=== PATIENT | female | born 2000 | race Caucasian/White ===

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

== ENCOUNTER 2019-02-08 22:21 | Emergency (ER) | payer SELFPAY ==
[~2019-02-08] VITALS: Ht 154.9 cm; Wt 59.0 kg
--- NOTE | 2019-02-08 23:00 | NUR ---
SHAKIRA FROM STREET. +ETOH BS 119. PT ASLEEP, INTOXICATED, WILL OPEN EYES W/ VERBAL STIMULI & WILL GO BACK TO SLEEP. RR EVEN & UNLABORED. DR. GOLD AT BS FOR EVAL & WILL CONT TO MONITOR.
--- NOTE | 2019-02-08 23:33 | NUR ---
URINE COLLECTED & LABS DRAWN & SENT TO LAB.
--- NOTE | 2019-02-09 02:22 | NUR ---
PT RESTING COMFORTABLY IN BED. VITAL SIGNS STABLE. NO ACUTE DISTRESS NOTED AT THIS TIME. WILL CONTINUE TO MONITOR
--- NOTE | 2019-02-09 04:14 | NUR ---
PT RESTING COMFORTABLY IN BED. VITAL SIGNS STABLE. NO ACUTE DISTRESS NOTED AT THIS TIME. WILL CONTINUE TO MONITOR
--- NOTE | 2019-02-09 05:43 | NUR ---
PT RESTING COMFORTABLY IN BED. VITAL SIGNS STABLE. NO ACUTE DISTRESS NOTED AT THIS TIME. WILL CONTINUE TO MONITOR
[2019-02-09 06:45] VITALS: BP 118/89
--- NOTE | 2019-02-09 06:45 | NUR ---
PT AAOX4. Patient discharged to home in stable condition. Written and verbal after care instructions given. Patient verbalizes understanding of instruction. Pt ambulatory with a steady gait
== END 2019-02-09 06:46 | disposition home or self-care (01) ==
LOC: ER 22:23
DX: F15.10 Other stimulant abuse, uncomplicated (principal); F19.10 Other psychoactive substance abuse, uncomplicated; Z59.0 Homelessness
CPT/HCPCS: 36415; 80305; 84703-TC; G0480

== ENCOUNTER 2021-07-27 04:10 | Emergency (ER) | payer MEDICAID ==
[~2021-07-27] VITALS: Ht 147.3 cm; Wt 59.0 kg
--- NOTE | 2021-07-27 04:40 | NUR ---
BIBRA 860 WITH [employer] C/O +SI - HI WITH PLAN TO CUT WRIST C/O RIGHT/WRIST PAIN. CHANGED INTO A GOWN A BELONGINGS COLLECTED. SITTER AT BEDSIDE FOR MONITORING. BREATHING EVEN AND UNLABORED AND ALL V/S STABLE.
--- NOTE | 2021-07-27 04:45 | NUR ---
URINE COLLECTED SENT TO LAB
--- NOTE | 2021-07-27 04:46 | NUR ---
BLOOD COLLECTED AND SENT TO LAB
[2021-07-27 05:45] LABS: BASOPHILS # (AUTO) 0.1 K/uL (0.0-0.2); BASOPHILS % (AUTO) 1.2 % (0.0-2.0); EOSINOPHILS % (AUTO) 2.6 % (0.0-6.0); HEMATOCRIT 40 % (33-45); HEMOGLOBIN 13.3 g/dL (11.5-14.8); LYMPHOCYTES # (AUTO) 2.4 K/uL (0.8-4.8); LYMPHOCYTES % (AUTO) 33.3 % (20.0-44.0); MEAN CORPUSCULAR HGB CONC 33 g/dl (31.0-36.0); MEAN CORPUSCULAR VOLUME 90 fL (82-100); MONOCYTES # (AUTO) 0.6 K/uL (0.1-1.30); MONOCYTES % (AUTO) 8.7 % (2.0-12.0); NEUTROPHILS # (AUTO) 3.9 K/uL (1.8-8.9); NEUTROPHILS % (AUTO) 54.2 % (43.0-81.0); PLATELET COUNT (AUTO) 439 K/uL (150-450); RED BLOOD CELL COUNT(AUTO) 4.45 MIL/uL (4.0-5.2); WHITE BLOOD COUNT (AUTO) 7.1 K/uL (4.3-11.0)
[2021-07-27 06:02] LABS: CALCIUM, SERUM 8.6 mg/dL (8.5-10.1); CARBON DIOXIDE 25 mmol/L (21-32); CHLORIDE 104 mmol/L (98-107); CREATININE 0.6 mg/dL (0.6-1.3); GLUCOSE 86 mg/dL (74-106); POTASSIUM 3.5 mmol/L (3.5-5.1); SODIUM SERUM 140 mmol/L (136-145); UREA NITROGEN, BLOOD 9 mg/dL (7-18)
[2021-07-27 06:07] LABS: ALANINE AMINOTRANSFERASE 80 U/L (12-78); ALBUMIN 3.7 g/dL (3.4-5.0); ALCOHOL, BLOOD 72 mg/dL (0-0); ALKALINE PHOSPHATASE 66 U/L (46-116); ASPARTATE AMINOTRANSFERASE 67 U/L (15-37); BILIRUBIN,DIRECT 0.1 mg/dL (0.0-0.2); BILIRUBIN,TOTAL 0.2 mg/dL (0.2-1.0); TOTAL PROTEIN, SERUM 7.9 g/dL (6.4-8.2)
[2021-07-27 06:12] LABS: ACETAMINOPHEN < 2 ug/ml (10-30)
[2021-07-27 07:13] LABS: BILIRUBIN,URINE NEGATIVE (NEGATIVE); COLOR,URINE YELLOW (YELLOW); LEUKOCYTE ESTERASE ,URINE NEGATIVE (NEGATIVE); NITRITE, URINE NEGATIVE (NEGATIVE); PROTEIN,URINE NEGATIVE (NEGATIVE); UGLUCOSE NEGATIVE (NEGATIVE); UROBILINOGEN,URINE 0.2 EU/dL (0.2)
[2021-07-27 07:27] LABS: BACTERIA,URINE Many /HPF (None Seen); SQUAMOUS EPITHELIAL CELL,UR Many /HPF (None Seen); WBC,URINE 0-2 /HPF (0-3)
--- NOTE | 2021-07-27 08:01 | NUR ---
THE PATIENT IS RECEIVED IN ER BED #14. ALERT AND ORIENTED X4. DENIES PAIN. IN ROOM AIR AND DENIES SOB. RESPIRATION REGULAR AND UNLABORED. SITTER AT THE BEDSIDE. WILL CONTINUE TO MONITOR THE PATIENT.
[2021-07-27] MEDS ORDERED: ACETAMINOPHEN ES 500 MG TABLET ONE (09:18)
[2021-07-27] MEDS ORDERED: ACETAMINOPHEN ES 500 MG TABLET PO ONE (09:30)
[2021-07-27 17:33] VITALS: BP 131/85
--- NOTE | 2021-07-27 17:52 | NUR ---
FAXED CLINICALS TO [facility] INTAKE.
--- NOTE | 2021-07-27 19:49 | NUR ---
ACCEPTED AT [facility] WILL CALL BACK IN 10 MINS WITH ACCEPTANCE INFO
--- NOTE | 2021-07-27 21:00 | NUR ---
PT WAS PICKED UP BY AN AGNT FROM [facility] AND TRANSFERRED TO [facility] IN STABLE CONDITION. ALL BELONGINGS PICKED UP BY HE PT
== END 2021-07-27 21:00 ==
LOC: ER 04:35
DX: R45.851 Suicidal ideations (principal); F23 Brief psychotic disorder; R74.01 Elevation of levels of liver transaminase levels; F19.10 Other psychoactive substance abuse, uncomplicated; Z91.14 Patient's other noncompliance with medication regimen; Z59.01 Sheltered homelessness; Z20.822 Contact with and (suspected) exposure to COVID-19
CPT/HCPCS: 36415; 80048; 80076; 80143; 80307; 80320; 81001; 84703; 85025; 87086; 87426; 99285; C9803; G0480